=== PATIENT | female | born 2000 | race American Indian/Alaskan Native ===

== ENCOUNTER 2024-11-21 09:05 | Emergency (ER) | payer BC, SELFPAY ==
[2024-11-21 09:08] VITALS: BP 134/98
--- NOTE | 2024-11-21 09:37 | ED.GENMED ---
History of Present Illness
<Kevin Jaime MD, Resident - Last Filed: 11/21/24 10:51>
General
Chief Complaint: Ear Problem
Source: patient
Time Seen by Provider: 11/21/24 09:27
Nursing documentation reviewed up to this point in time: agreed with
History of Present Illness
History of Present Illness:
23 year old female with no significant past medical history comes to the ED with complaints of right ear pain. She states that she started to notice her right ear being blocked after showering on Wednesday and that it started hurting around Wednesday.
She has had no fevers or chills along with these symptoms. She ended up going to Urgent care yesterday who saw increased ear wax in her right ear. They tried irrigating the right ear but were unsuccessful in fully removing all the wax. Since
yesterday, her right side of the face hurts and she has pain radiating down to her throat as well.
Past History
<Kevin Jaime MD, Resident - Last Filed: 11/21/24 10:51>
Past History
ED Past Medical History: None
Review of Systems
<Kevin Jaime MD, Resident - Last Filed: 11/21/24 10:51>
Review of Systems
All Other Systems: ROS reviewed and negative except as documented in HPI and ROS
Phy Exam
<Kevin Jaime MD, Resident - Last Filed: 11/21/24 10:51>
General Physical Exam
General Presentation: well appearing
General Skin: warm and dry
General Habitus: normal
General Mental: alert
ENT Exam
ENT Exam: pharynx normal, normocephalic and other (Right external ear canal occluded with wax)
Cardiovascular Exam
Cardiovascular Exam: regular rate/rhythm
Pulmonary Exam
Pulmonary Exam: lungs clear and no respiratory distress
Course
<eKvin Jaime MD, Resident - Last Filed: 11/21/24 10:51>
Orders/Labs/Results
Orders:
Orders
11/21/24 09:37
Docusate Sodium [Colace Liquid] 50 mg S NOW STA
Vital Signs
Initial and Last Documented VS:
Initial Vital Signs
Temp Pulse Resp BP Pulse Ox
98.1 F 63 17 134/98 99
11/21/24 09:08 11/21/24 09:08 11/21/24 09:08 11/21/24 09:08 11/21/24 09:08
Last Documented Vital Signs
Temp Pulse Resp BP Pulse Ox
98.1 F 60 16 98/57 97
11/21/24 09:08 11/21/24 09:58 11/21/24 09:58 11/21/24 09:58 11/21/24 09:58
<Vel Coates, DO - Last Filed: 11/21/24 10:03>
Orders/Labs/Results
Orders:
Orders
11/21/24 09:37
Docusate Sodium [Colace Liquid] 50 mg S NOW STA
Vital Signs
Initial and Last Documented VS:
Initial Vital Signs
Temp Pulse Resp BP Pulse Ox
98.1 F 63 17 134/98 99
11/21/24 09:08 11/21/24 09:08 11/21/24 09:08 11/21/24 09:08 11/21/24 09:08
Last Documented Vital Signs
Temp Pulse Resp BP Pulse Ox
98.1 F 60 16 98/57 97
11/21/24 09:08 11/21/24 09:58 11/21/24 09:58 11/21/24 09:58 11/21/24 09:58
<Kevin Jaime MD, Resident - Last Filed: 11/21/24 10:51>
MDM/Problems Addressed
Differential Diagnosis Includes:
Right Ear canal occlusion with cerumen, Right Otitis Media
MDM/Problems Addressed:
23 year old female with right sided ear pain which is now possibly radiating to her throat
On ear examination, right external ear canal obstructed with wax
Will give docusate sodium to help loosen the wax
Will clean out the right ear afterwards and check TM for signs of possible infection
Ear cleaned out, tympanic membrane mildly inflamed but not bulging and no clear signs of infection
Continues to have right sided face pain with jaw movement
Most likely is eustachian tube disfunction/occlusion
Will discharge home with a nasal steroid to use and instructions about exercises to help relieve blockage
<Kevin Jaime MD, Resident - Last Filed: 11/21/24 10:51>
*Pulse Oximetry
SaO2: 99
Oxygen Mode of Delivery: Room air
Patient hypoxic: no
*Critical Care Note
Total Time (30-74mins, 75-104mins- exclusive of procedures): Not Applicable
ED Attending Note
<Kevin Jaime MD, Resident - Last Filed: 11/21/24 10:51>
-
Portions of this chart may have been created with voice recognition software.� Occasional wrong word or��sound alike� substitutions may have occurred due to the inherent limitations of voice recognition software.
<Vel Coates, - Last Filed: 11/21/24 10:03>
ED Attending Note
Patient seen and examined by attending physician: Yes
I performed a history and physical exam of patient and discussed management with resident, I reviewed resident's note and agree with documented findings and plan of care.: Yes
ED Attending Note:
Seen with resident examined independently healthy 23-year-old female right ear pressure seen in urgent care told she had sounds like a wax impaction which does look like she has we will try to clear that to get a better look at her membrane
Discharge Plan
Departure
Patient Disposition: Home (Routine Discharge)
Date of Disposition: 11/21/24
Time of Disposition: 10:51
Patient with high blood pressure during this ER visit?: Yes
Condition: Good
Discharge Problem:
Eustachian tube dysfunction, Excessive cerumen in right ear canal
Instructions: Eustachian tube problems, Ear wax impaction, BLOOD PRESSURE
Prescriptions:
New
fluticasone propionate [Flonase Allergy Relief] 50 mcg/actuation spray,suspension
1 spray intranasal DAILY Qty: 16 0RF
Referrals:
Danny Bee DO [Family Provider, Family Practice]
Interventions
Interventions:
*Risk Screen - Suicide Last Done: 11/21/24 09:10
*General Assessment Last Done: 11/21/24 09:10
*Neglect/Abuse Screening Last Done: 11/21/24 09:10
*ED- Fall Risk Assessment Last Done: 11/21/24 09:54
*ED COVID-19 Vaccine History Last Done: 11/21/24 09:10
Discharge Date and Time
Print Language: HUNGAR[place]
--- NOTE | 2024-11-21 09:47 | EDRN ---
Dr. Coates in room w/ pt and Dr. Jaime (ED Resident). Pt states she has a lot of ear pressure as well
[2024-11-21] MEDS: COLACE LIQUID 50 MG S (09:51)
[2024-11-21 09:54] VITALS: BMI 21.9
[2024-11-21 09:58] VITALS: BP 98/57
--- NOTE | 2024-11-21 10:53 | EDRN ---
Dr. Blayne Jaime in room w/ pt at this time.
== END 2024-11-21 10:55 | disposition home or self-care (01) ==
LOC: EMR 09:05
PROVIDERS: EMERGENCY PHYSICIAN Emergency Medicine; FAMILY PHYSICIAN Family Medicine
DX: H69.91 Unspecified Eustachian tube disorder, right ear (principal); H61.21 Impacted cerumen, right ear; R03.0 Elevated blood-pressure reading, without diagnosis of hypertension; Z88.1 Allergy status to other antibiotic agents
CPT/HCPCS: 99283

== ENCOUNTER 2024-11-22 06:59 | Emergency (ER) | payer BC, SELFPAY ==
[2024-11-22 07:03] VITALS: BP 138/77
--- NOTE | 2024-11-22 07:09 | ED.GENMED ---
History of Present Illness
General
Chief Complaint: Ear Problem
Time Seen by Provider: 11/22/24 07:08
History of Present Illness
History of Present Illness:
PAST MEDICAL HISTORY AND REVIEW OF OLD RECORDS
- I reviewed the notes from yesterday. At that time she came in because of right ear pain; she did have irrigation performed at urgent care and here yesterday. There is no clear sign of bacterial infection at that time.
Note:
CHIEF COMPLAINT(S)
Ear pain and inflammation.
HISTORY OF PRESENT ILLNESS
The patient is a 23-year-old female who presented with ear pain and inflammation. Symptoms began four days ago, leading to an urgent care visit three days prior, where an initial attempt to irrigate earwax was made. Although some wax was removed,
the patient reports persistent discomfort in the right ear, with sensations extending to the jaw area. There is notable inflammation of the eardrum as seen during examination. The left ear appears normal. She denies fever, discharge, and
overwhelming pain but notes mild tenderness when the tragus is pushed. The patient has a known allergy to cephalexin, which previously caused a reaction one week after completing a course. She has tolerated penicillin-based antibiotics, such as
amoxicillin, in the past.
PHYSICAL EXAM
General: Alert, no acute distress.
Skin: Warm, dry.
Head: Normocephalic, atraumatic.
Eye Ears, nose, mouth and throat: Right eardrum appears inflamed with residual earwax; left ear normal; oral mucosa moist.
Neurological: Alert and oriented to person, place, time, and situation, no focal neurological deficit observed.
Psychiatric: Cooperative, appropriate mood & affect.
PLAN
- Administer one dose of intramuscular ketorolac for pain relief.
- Prescribe amoxicillin for potential bacterial infection, given the patients allergy to cephalexin.
- Continue usage of [id number]-[id number]-dwboiue ear wax removal drops periodically.
- Advise home irrigation with a bulb syringe using tap water or tap water mixed with hydrogen peroxide.
- Continue using fluticasone propionate nasal spray as previously recommended.
- Suggest the use of pseudoephedrine as needed for inflammation and pain, with proper identification at the pharmacy.
DIFFERENTIAL DIAGNOSIS
The Differential Diagnosis includes, in no particular order and is not limited to:
- Otitis media
- Earwax impaction
- Temporomandibular joint disorder
- Otitis externa
- Eustachian tube dysfunction
- Viral upper respiratory infection
- Allergic rhinitis
- Perforated eardrum
- Dental abscess
- Mastoiditis
MEDICATION RECONCILIATION
- One dose of ketorolac administered intramuscularly in the emergency department.
- Prescribed amoxicillin for suspected bacterial ear infection, given the patients allergy to cephalexin.
MEDICAL DECISION MAKING
-Complexity of Data Reviewed:
Chronic conditions affecting care � allergy to cephalexin.
-Data:
Category 1:
None discussed.
Category 2:
None discussed.
Category 3:
None discussed.
-Risk:
Prescription medication was prescribed, namely amoxicillin.
Diagnosis:
The probable diagnosis is otitis media (H66.91).
Disposition:
SUMMARY OF ENCOUNTER
The patient is a 23-year-old female who presented to the emergency department with persistent ear pain and inflammation predominantly in the right ear. An attempt to remove earwax was made previously, but the patient reported continued discomfort.
Examination revealed inflammatory changes and effusion of the right eardrum with some residual wax. The pain was mild upon palpation of the tragus, indicating otitis media as a probable cause. Given the patients allergy to cephalexin, amoxicillin
was chosen as a suitable antibiotic. The patient has a history of tolerating penicillin-based antibiotics.
ASSESSMENT
The patient likely has otitis media, potentially due to bacterial infection complicating previous wax impaction.
EMERGENCY TREATMENTS ADMINISTERED
Administered one dose of intramuscular ketorolac for pain relief.
PLAN
- Prescribe amoxicillin for possible bacterial infection management, considering the patients allergy to cephalexin.
- Use tgcu-hfr-hfefvew earwax removal drops periodically for symptomatic relief.
- Advise home irrigation using a bulb syringe with tap water or tap water mixed with hydrogen peroxide.
- Continue the use of fluticasone propionate nasal spray as previously ordered.
- Use pseudoephedrine as needed for inflammation and pain relief.
- IM Toradol
PATIENT EDUCATION AND COUNSELING
The patient was informed about the importance of completing the antibiotic course (amoxicillin) and advised on home care techniques to alleviate symptoms. Education was also provided on monitoring for any signs of allergic reaction to the medication.
FOLLOW-UP INSTRUCTIONS
Follow up with primary care provider or ENT specialist if symptoms persist or worsen.
MEDICATION RECONCILIATION
- Administered one dose of intramuscular ketorolac in the emergency department.
- Prescribed amoxicillin for suspected bacterial ear infection.
- Recommended continuing use of fluticasone propionate nasal spray and pseudoephedrine as needed.
MEDICAL DECISION MAKING
-Complexity of Data Reviewed: Chronic conditions affecting care � the patients allergy to cephalexin is noteworthy. Differential diagnosis includes otitis media, earwax impaction, temporomandibular joint disorder, otitis externa, Eustachian tube
dysfunction, viral upper respiratory infection, allergic rhinitis, perforated eardrum, dental abscess, and mastoiditis.
-Data:
Category 1: None needed as the recommendations were primarily based on physical findings.
-Risk: Prescription medication was prescribed, namely amoxicillin due to the suspected bacterial infection.
DIAGNOSIS
Otitis Media, unspecified ear (H66.91).
Past History
Past History
ED Past Medical History: None
Phy Exam
Physical Exam
Physical Exam:
See HPI
Course
Orders/Labs/Results
Orders:
Orders
11/22/24 07:17
Amoxicillin 875 mg/Clav 125 mg [Augmentin 875 mg/125 mg] 1 tablet PO NOW STA
Ketorolac [Toradol] 30 mg IM NOW STA
Vital Signs
Initial and Last Documented VS:
Initial Vital Signs
Temp Pulse Resp BP Pulse Ox
36.5 C 69 16 138/77 100
11/22/24 07:03 11/22/24 07:03 11/22/24 07:03 11/22/24 07:03 11/22/24 07:03
Last Documented Vital Signs
Temp Pulse Resp BP Pulse Ox
36.5 C 69 16 138/77 100
11/22/24 07:03 11/22/24 07:03 11/22/24 07:03 11/22/24 07:03 11/22/24 07:10
*Pulse Oximetry
SaO2: 100
Oxygen Mode of Delivery: Room air
Patient hypoxic: no
*Critical Care Note
Total Time (30-74mins, 75-104mins- exclusive of procedures): Not Applicable
ED Attending Note
-
Portions of this chart may have been created with voice recognition software.� Occasional wrong word or��sound alike� substitutions may have occurred due to the inherent limitations of voice recognition software.
Discharge Plan
Departure
Patient Disposition: Home (Routine Discharge)
Date of Disposition: 11/22/24
Time of Disposition: 07:19
Patient with high blood pressure during this ER visit?: Yes
Discharge Problem:
Acute otitis media with effusion of right ear
Instructions: Ear infections in adults
Prescriptions:
New
amoxicillin-pot clavulanate 875-125 mg tablet
1 tab PO BID Qty: 14 0RF
No Action
fluticasone propionate [Flonase Allergy Relief] 50 mcg/actuation spray,suspension
1 spray intranasal DAILY Qty: 16 0RF
Activity Restrictions/Additional Instructions:
I recommend 3-4 [id number]-[id number] ibuprofen (Motrin) every 8 hours with food for a few days. Return here if worse. It is possibly could have a bacterial infection. I am sending a prescription for antibiotic to your pharmacy. You do have some
degree of wax persisting along with inflammatory changes to the right eardrum. I would continue the drops for earwax and you could also irrigate the ear with lukewarm water with a bulb syringe. You could also try Sudafed (pseudoephedrine)�you could
get this by asking the pharmacist behind the counter (just half to show your license). This may also help with the pain. Continue Flonase.
Interventions
Interventions:
*Risk Screen - Suicide Last Done: 11/22/24 07:03
*Neglect/Abuse Screening Last Done: 11/22/24 07:03
Discharge Date and Time
Print Language: [place]
[2024-11-22] MEDS: AUGMENTIN 875 MG/125 MG 1 TABLET PO (08:00)
[2024-11-22] MEDS: TORADOL 30 MG IM (08:01)
== END 2024-11-22 08:05 | disposition home or self-care (01) ==
LOC: EMR 06:59
PROVIDERS: EMERGENCY PHYSICIAN Emergency Medicine; FAMILY PHYSICIAN Family Medicine
DX: H65.191 Other acute nonsuppurative otitis media, right ear (principal); R03.0 Elevated blood-pressure reading, without diagnosis of hypertension; Z88.1 Allergy status to other antibiotic agents
CPT/HCPCS: 99284; 96372